=== PATIENT | female | born 1930 | race African-American/Black ===

== ENCOUNTER 2016-05-07 11:44 | Outpatient (CLI) | payer MEDICARE, MEDICAID ==
[2016-05-07 12:19] LABS: Prothrombin Time 30.3 SEC (12.0-14.7)
== END 2016-05-07 11:45 | disposition home or self-care (01) ==
LOC: HPCALD 11:44
PROVIDERS: ATTEND Family Medicine
DX: I48.91 Unspecified atrial fibrillation (principal)
CPT/HCPCS: 36415; 85610

== ENCOUNTER 2016-06-04 11:33 | Outpatient (CLI) | payer MEDICARE, MEDICAID ==
[2016-06-04 12:46] LABS: Prothrombin Time 25.1 SEC (12.0-14.7)
[2016-06-04 12:58] LABS: Digoxin 1.26 ng/mL (0.8-2.0)
== END 2016-06-04 11:34 ==
LOC: HPCALD 11:33
PROVIDERS: ATTEND Family Medicine
DX: I48.91 Unspecified atrial fibrillation (principal)
CPT/HCPCS: 36415; 80162; 85610

== ENCOUNTER 2016-07-01 11:05 | Emergency (ER) | payer MEDICARE, MEDICAID ==
[2016-07-01 12:13] LABS: INR-International Normal Ratio 2.2
[2016-07-01 12:18] LABS: Anion Gap 13 mmol/L (10-20); BUN (Urea Nitrogen) 15 mg/dL (9.8-20.1); Calc. Creatinine Clearance 0 mL/min (70-130); Calcium 9.4 mg/dL (7.8-10.44); Carbon Dioxide 22 mmol/L (23-31); Chloride 106 mmol/L (98-107); Estimated GFR-MDRD 78; Glucose 136 mg/dL (83-110); Potassium 3.8 mmol/L (3.5-5.1); Sodium 137 mmol/L (136-145)
--- NOTE | 2016-07-01 12:18 | RAD ---
3 VIEWS OF RIGHT ELBOW: Date: 07/01/16 COMPARISON: None. HISTORY: Right elbow pain. FINDINGS: Three views of the right elbow show no evidence of acute fracture or dislocation. Mild soft tissue s welling is seen. There appears to be a small elbow effusion. No degenerative changes are seen. IMPRESSION: Small right elbow effusion without underlying osseous abnormality. POS: [facility]
[2016-07-01 12:25] LABS: #Basophils 0.1 thou/uL (0.0-0.2); #Lymphocytes 1.4 thou/uL (1.20-3.40); #Monocytes 1.4 thou/uL (0.11-0.59); #Neutrophils 12.1 thou/uL (1.40-6.50); %Basophils 0.6 % (0.0-1.0); %Lymphocytes 9.4 % (21.0-51.0); %Monocytes 9.2 % (0.0-10.0); %Neutrophils 80.8 % (42.0-75.0); Hemoglobin 10.3 g/dL (12.0-16.0); Mean Corpuscular Hemoglobin 22.9 pg (27.0-31.0); Mean Corpuscular Volume 76.3 fl (81.0-99.0); Mean Platelet Volume 7.2 fL (7.4-10.4); Platelet Count 285 thou/uL (130-400); RBC Distribution Width 16.2 % (11.5-14.5); Red Blood Cell (RBC) Count 4.49 mill/uL (4.20-5.40)
[2016-07-01 12:47] LABS: Anisocytosis SLIGHT = 6-15 cells (100X) (0-5/hpf); MDiff Complete? YES; Microcytosis SLIGHT = 6-15 cells (100X) (0-5/hpf); PLT Morphology Comment Appears Adequate
[2016-07-01 16:11] LABS: Bacteria/HPF None Seen HPF (None Seen); Bilirubin Negative (Negative); Blood, Urine Trace (Negative); Clarity Clear (Clear); Glucose, Urine (Dipstick) Negative (Negative); Leukocyte Negative (Negative); Nitrite Negative (Negative); Protein, Urine (Dipstick) 30 mg/dL (Neg-Trace); Specific Gravity, Urine 1.025 (1.005-1.030); Squamous Epithelial 0-3 HPF (0-3); Urobilinogen 0.2 mg/dL (0.2-1.0); WBC/HPF None Seen HPF (0-3)
== END 2016-07-01 18:35 ==
LOC: BURERS 11:05
DX: M10.021 Idiopathic gout, right elbow (principal); R53.1 Weakness; I10 Essential (primary) hypertension; I48.91 Unspecified atrial fibrillation; Z87.891 Personal history of nicotine dependence; Z79.82 Long term (current) use of aspirin; Z79.899 Other long term (current) drug therapy
CPT/HCPCS: 36415; 51701; 80048; 81003; 81015; 85025; 85610; 96374; A4353; J2270

== ENCOUNTER 2016-07-23 13:01 | Outpatient (CLI) | payer MEDICARE, MEDICAID ==
[2016-07-23 13:19] LABS: INR-International Normal Ratio 2.1
== END 2016-07-23 13:02 ==
LOC: HPCALD 13:01
PROVIDERS: ATTEND Family Medicine
DX: I48.91 Unspecified atrial fibrillation (principal)
CPT/HCPCS: 36415; 85610

== ENCOUNTER 2016-08-20 13:31 | Outpatient (CLI) | payer MEDICARE, MEDICAID ==
[2016-08-20 14:13] LABS: INR-International Normal Ratio 1.7; Prothrombin Time 20.8 SEC (12.0-14.7)
== END 2016-08-20 13:32 | disposition home or self-care (01) ==
LOC: HPCALD 13:31
PROVIDERS: ATTEND Family Medicine
DX: I48.91 Unspecified atrial fibrillation (principal)
CPT/HCPCS: 36415; 85610

== ENCOUNTER 2016-09-17 10:58 | Outpatient (CLI) | payer MEDICARE, MEDICAID ==
[2016-09-17 11:34] LABS: INR-International Normal Ratio 2.9; Prothrombin Time 31.6 SEC (12.0-14.7)
== END 2016-09-17 10:59 | disposition home or self-care (01) ==
LOC: HPCALD 10:58
PROVIDERS: ATTEND Family Medicine
DX: I48.91 Unspecified atrial fibrillation (principal)
CPT/HCPCS: 36415; 85610

== ENCOUNTER 2016-10-17 11:36 | Outpatient (CLI) | payer MEDICARE, MEDICAID ==
[2016-10-17 12:10] LABS: INR-International Normal Ratio 3.4; Prothrombin Time 35.6 SEC (12.0-14.7)
== END 2016-10-17 11:37 | disposition home or self-care (01) ==
LOC: HPCALD 11:36
PROVIDERS: ATTEND Family Medicine
DX: I48.91 Unspecified atrial fibrillation (principal)
CPT/HCPCS: 36415; 85610

== ENCOUNTER 2016-11-14 11:00 | Outpatient (CLI) | payer MEDICARE, MEDICAID ==
[2016-11-14 11:15] LABS: INR-International Normal Ratio 2.3; Prothrombin Time 25.8 SEC (12.0-14.7)
== END 2016-11-14 11:01 | disposition home or self-care (01) ==
LOC: HPCALD 11:00
PROVIDERS: ATTEND Family Medicine
DX: I48.91 Unspecified atrial fibrillation (principal)
CPT/HCPCS: 36415; 85610

== ENCOUNTER 2016-11-21 12:52 | Emergency (ER) | payer MEDICARE, MEDICAID ==
[2016-11-21 13:27] LABS: Hemoglobin 11.7 g/dL (12.0-16.0); Mean Corpuscular HGB CONC 30.8 g/dL (32.0-36.0); Mean Corpuscular Hemoglobin 22.7 pg (27.0-31.0); Mean Corpuscular Volume 73.7 fl (81.0-99.0); Mean Platelet Volume 8.2 fL (7.4-10.4); Platelet Count 280 thou/uL (130-400); Red Blood Cell (RBC) Count 5.14 mill/uL (4.20-5.40); White Blood Cell (WBC) Count 9.6 thou/uL (4.8-10.8)
[2016-11-21 13:28] LABS: INR-International Normal Ratio 2.4
[2016-11-21 13:29] LABS: PTT 50.2 SEC (22.9-36.1)
[2016-11-21 13:35] LABS: Anion Gap 18 mmol/L (10-20); BUN (Urea Nitrogen) 20 mg/dL (9.8-20.1); Calc. Creatinine Clearance 0 mL/min (70-130); Calcium 9.7 mg/dL (7.8-10.44); Carbon Dioxide 20 mmol/L (23-31); Chloride 104 mmol/L (98-107); Estimated GFR-MDRD 54; Glucose 107 mg/dL (83-110); Sodium 138 mmol/L (136-145); Uric Acid 7.2 mg/dL (2.6-6.0)
[2016-11-21] MEDS ORDERED: HYDROcodone/Acetaminophen 5/325 mg Tablet ONE (13:35)
[2016-11-21 13:36] LABS: Digoxin 0.62 ng/mL (0.8-2.0)
[2016-11-21 13:50] LABS: Hypochromia SLIGHT = 6-15 cells (100X) (0-5/hpf); Lymphocytes 25 % (21-51); MDiff Complete? YES; Microcytosis SLIGHT = 6-15 cells (100X) (0-5/hpf); Monocytes 15 % (0-10); Neutrophil 58 % (42-75); Reactive Lymphocytes 2 % (0-10)
[2016-11-21] MEDS ORDERED: Dexamethasone 4 mg/ml Vial ONE (13:57)
== END 2016-11-21 14:56 | disposition home or self-care (01) ==
LOC: BURERS 12:52
DX: M10.9 Gout, unspecified (principal); D50.9 Iron deficiency anemia, unspecified; I48.91 Unspecified atrial fibrillation; I10 Essential (primary) hypertension; Z87.891 Personal history of nicotine dependence; Z79.899 Other long term (current) drug therapy; Z79.01 Long term (current) use of anticoagulants
CPT/HCPCS: 36415; 80048; 80162; 84550; 85025; 85610; 85730; 99283; J1100

== ENCOUNTER 2016-12-18 10:54 | Outpatient (CLI) | payer MEDICARE, MEDICAID ==
[2016-12-18 12:38] LABS: INR-International Normal Ratio 3.5; Prothrombin Time 36.5 SEC (12.0-14.7)
[2016-12-18 13:16] LABS: ALT (SGPT) 15 U/L (8-55); AST (SGOT) 16 U/L (5-34); Albumin 3.9 g/dL (3.4-4.8); Alkaline Phosphatase 72 U/L (40-150); Anion Gap 17 mmol/L (10-20); BUN (Urea Nitrogen) 17 mg/dL (9.8-20.1); Bilirubin, Total 0.8 mg/dL (0.2-1.2); Calc. Creatinine Clearance 0 mL/min (70-130); Calcium 9.3 mg/dL (7.8-10.44); Carbon Dioxide 22 mmol/L (23-31); Chloride 105 mmol/L (98-107); Estimated GFR-MDRD 67; Globulin 3.7 g/dL (2.4-3.5); Glucose 96 mg/dL (83-110); Potassium 4.1 mmol/L (3.5-5.1); Protein, Total 7.6 g/dL (6.0-8.3); Sodium 140 mmol/L (136-145)
[2016-12-18 13:46] LABS: #Basophils 0.1 thou/uL (0.0-0.2); #Eosinphils 0.2 thou/uL (0.0-0.7); #Lymphocytes 1.8 thou/uL (1.20-3.40); #Monocytes 1.2 thou/uL (0.11-0.59); #Neutrophils 7.8 thou/uL (1.40-6.50); %Basophils 0.6 % (0.0-1.0); %Lymphocytes 16.1 % (21.0-51.0); %Monocytes 10.7 % (0.0-10.0); %Neutrophils 70.6 % (42.0-75.0); Hemoglobin 11.1 g/dL (12.0-16.0); Hypochromia MODERATE=16-30 cells (100X) (0-5/hpf); Mean Corpuscular HGB CONC 30.5 g/dL (32.0-36.0); Mean Corpuscular Hemoglobin 23.3 pg (27.0-31.0); Mean Corpuscular Volume 76.5 fl (81.0-99.0); Microcytosis SLIGHT = 6-15 cells (100X) (0-5/hpf); Platelet Count 284 thou/uL (130-400); RBC Distribution Width 16.8 % (11.5-14.5); Red Blood Cell (RBC) Count 4.75 mill/uL (4.20-5.40)
[2016-12-18 13:49] LABS: Manual Diff?? NO
[2016-12-18 14:28] LABS: MDiff Complete? YES
== END 2016-12-18 10:55 | disposition home or self-care (01) ==
LOC: HPCALD 10:54
PROVIDERS: ATTEND Family Medicine
DX: E53.8 Deficiency of other specified B group vitamins (principal); I48.91 Unspecified atrial fibrillation; I10 Essential (primary) hypertension
CPT/HCPCS: 36415; 80053; 82607; 84443; 85025; 85610

== ENCOUNTER 2019-10-05 10:19 | Outpatient (CLI) | payer MEDICARE, MEDICAID ==
[2019-10-05 10:47] LABS: #Basophils 0.1 thou/uL (0.0-0.2); #Eosinphils 0.2 thou/uL (0.0-0.7); #Lymphocytes 2.1 thou/uL (1.20-3.40); %Lymphocytes 28.3 % (21.0-51.0); %Monocytes 12.9 % (0.0-10.0); %Neutrophils 54.8 % (42.0-75.0); Anisocytosis SLIGHT = 6-15 cells (100X) (0-5/hpf); Elliptocytes SLIGHT = 2-5 cells (100X) (0-1/hpf); MDiff Complete? YES; Mean Corpuscular HGB CONC 28.3 g/dL (32.0-36.0); Mean Corpuscular Hemoglobin 22.7 pg (27.0-31.0); Mean Corpuscular Volume 80.4 fL (78.0-98.0); Mean Platelet Volume 8.7 fL (7.4-10.4); Platelet Count 249 thou/uL (130-400); Poikilocytosis SLIGHT = 6-15 cells (100X) (0-5/hpf); RBC Distribution Width 20.8 % (11.5-14.5); Red Blood Cell (RBC) Count 4.82 mill/uL (4.20-5.40); Schistocytes SLIGHT = 2-5 cells (100X) (0-1/hpf); Tear Drops SLIGHT = 2-5 cells (100X) (0-1/hpf); White Blood Cell (WBC) Count 7.4 thou/uL (4.8-10.8)
== END 2019-10-05 10:20 | disposition home or self-care (01) ==
LOC: BURMANOR 10:19
PROVIDERS: ATTEND Registered Nurse Community Health
DX: H11.30 Conjunctival hemorrhage, unspecified eye (principal)
CPT/HCPCS: 36415; 85025

== ENCOUNTER 2020-02-01 16:49 | Outpatient (CLI) | payer MEDICARE, MEDICAID ==
--- NOTE | 2020-02-01 21:21 | RAD ---
CHEST TWO VIEWS: 02/01/20 Comparison is made with the prior study of 02/28/19 and 02/14/19. The heart is moderately enlarged. There is no congestive change or pleural effusion. A little linear streaking in the right base could be atelectasis or scarring. There is vague density seen to the lef t of the patient's spine through the heart. This could be a hiatal hernia or could be the aorta. Binh retically, one could do a CT and resolve this, but there may be no real reason to do it unless her sy mptoms otherwise dictate the need. IMPRESSION: 1. Cardiomegaly. 2. Vague left paraspinal density, possibly just a hiatal hernia or the aorta. See comments above . POS: HOME
== END 2020-02-01 16:50 | disposition home or self-care (01) ==
LOC: BURRAD 16:49
PROVIDERS: ATTEND Registered Nurse Community Health
DX: R09.89 Other specified symptoms and signs involving the circulatory and respiratory systems (principal); I51.7 Cardiomegaly
CPT/HCPCS: 71046

== ENCOUNTER 2020-02-08 09:05 | Outpatient (CLI) | payer MEDICARE, MEDICAID ==
--- NOTE | 2020-02-08 18:01 | CT ---
CT OF THE CHEST WITHOUT CONTRAST: 02/08/[address] of the chest was done for evaluation of an abnormal chest x-ray that showed a confusion bahman ble density through the left heart shadow and to the left of the aorta. Axial slices were acquired wi thout contrast due to difficulties starting an IV on the patient. The density seen on the chest x-ray is an unusually placed esophagus. Instead of being more or less n ear the midline, this patient's esophagus deviates fully to the left of the descending thoracic aorta . This is the explanation for the double density seen on the chest x-ray. No mediastinal mass or sign ificant adenopathy was appreciated. One node just anterior to the joan was right at the 1.5 cm bree in, but there is no real plethora of nodes elsewhere. Mild coronary artery calcifications are present . The ascending aorta is mildly dilated at about 3.6 cm. No acute infiltrate or effusion was seen in the lungs. No pulmonary masses were seen. There are extensive degenerative changes in the spine. Sca ns into the upper abdomen showed no significant acute finding here. The right adrenal gland was somew hat more nodular than the left, but there is little to be concerned about regarding this. IMPRESSION: 1. Double density seen on chest x-ray is an abnormally placed esophagus. The esophagus lies full y to the left of the descending thoracic aorta. 2. No acute thoracic findings otherwise. 3. Mild cardiomegaly and arteriosclerosis. POS: HOME
== END 2020-02-08 09:06 | disposition home or self-care (01) ==
LOC: BURCT 09:05
PROVIDERS: ATTEND Registered Nurse Community Health
DX: Z01.818 Encounter for other preprocedural examination (principal); R93.89 Abnormal findings on diagnostic imaging of other specified body structures; I51.7 Cardiomegaly; I25.10 Atherosclerotic heart disease of native coronary artery without angina pectoris
CPT/HCPCS: 71250

== ENCOUNTER 2020-06-22 06:49 | Outpatient (CLI) | payer MEDICARE ==
[2020-06-22 11:56] LABS: Bacteria/HPF 1+ HPF (None Seen); Bilirubin Negative (Negative); Blood, Urine Negative (Negative); Clarity Clear (Clear); Glucose, Urine (Dipstick) Normal (Negative); Ketone, Urine Negative (Negative); Leukocyte Negative Leu/uL (Negative); Nitrite Negative (Negative); Protein, Urine (Dipstick) 50 mg/dL (Neg-Trace); RBC/HPF 0-3 HPF (0-3); Specific Gravity, Urine 1.025 (1.002-1.036); Squamous Epithelial 0-3 HPF (0-3); Urobilinogen Normal mg/dL (Less than 2); WBC/HPF 0-3 HPF (0-3); pH, Urine 5.5 (5.0-9.0)
== END 2020-06-22 06:50 | disposition home or self-care (01) ==
LOC: BURMANOR 06:49
PROVIDERS: ATTEND Family Medicine
DX: N39.0 Urinary tract infection, site not specified (principal)
CPT/HCPCS: 81001; 87086

== ENCOUNTER 2020-06-22 19:27 | Outpatient (CLI) | payer MEDICARE ==
[2020-06-22 19:40] LABS: Hemoglobin 12.8 g/dL (12.0-16.0); Mean Corpuscular Hemoglobin 29.1 pg (27.0-31.0); Mean Corpuscular Volume 91.1 fL (78.0-98.0); Mean Platelet Volume 7.7 fL (7.4-10.4); Platelet Count 246 thou/uL (130-400); RBC Distribution Width 13.6 % (11.5-14.5); Red Blood Cell (RBC) Count 4.39 mill/uL (4.20-5.40); White Blood Cell (WBC) Count 6.9 thou/uL (4.8-10.8)
[2020-06-22 19:50] LABS: ALT (SGPT) 22 U/L (8-55); AST (SGOT) 17 U/L (5-34); Alkaline Phosphatase 66 U/L (40-110); Anion Gap 16 mmol/L (10-20); BUN (Urea Nitrogen) 35 mg/dL (9.8-20.1); Bilirubin, Total 0.4 mg/dL (0.2-1.2); Calc. Creatinine Clearance 0 mL/min (70-130); Calcium 10.2 mg/dL (7.8-10.44); Carbon Dioxide 24 mmol/L (23-31); Chloride 101 mmol/L (98-107); Globulin 4.1 g/dL (2.4-3.5); Glucose 99 mg/dL (83-110); Potassium 3.7 mmol/L (3.5-5.1); Protein, Total 8.1 g/dL (5.8-8.1); Sodium 137 mmol/L (136-145)
[2020-06-22 20:20] LABS: Digoxin 2.21 ng/mL (0.8-2.0)
== END 2020-06-22 19:28 | disposition home or self-care (01) ==
LOC: BURMANOR 19:27
PROVIDERS: ATTEND Family Medicine
DX: K52.9 Noninfective gastroenteritis and colitis, unspecified (principal); Z79.899 Other long term (current) drug therapy; Z20.828 Contact with and (suspected) exposure to other viral communicable diseases
CPT/HCPCS: 80053; 80162; 85027